=== PATIENT | female | born 1950 | race Native Hawaiian/Other Pacific Islander ===

== ENCOUNTER 2021-02-01 23:34 | Emergency (ER) | payer OTHER ==
[~2021-02-01] VITALS: Ht 147.3 cm; Wt 56.7 kg
[2021-02-01 23:34] VITALS: BP 178/81; TEMP 98
[2021-02-02 00:40] LABS: PLATELET COUNT 310 K/uL (152-353)
[2021-02-02 01:03] LABS: POTASSIUM 3.5 mmol/L (3.6-5.2)
[2021-02-02] MEDS ORDERED: ALPR0.5T24 PO (03:42)
[2021-02-02] MEDS ORDERED: STOOL SOFTNR100 MG PO (03:46)
[2021-02-02] MEDS ORDERED: HALO5INJ3 IM (03:50)
[2021-02-02] MEDS ORDERED: METF500T PO (03:57)
[2021-02-02] MEDS ORDERED: METO-837 PO (04:00)
[2021-02-02] MEDS ORDERED: PROTONIX20 MG PO (04:02)
[2021-02-19] MEDS ORDERED: RISP0.25 PO ×2 (09:03)
[2021-02-19] MEDS ORDERED: CYAN10009 IM (09:03)
[2021-02-19] MEDS ORDERED: ESCI10TA PO (09:04)
[2021-02-19] MEDS ORDERED: NICOTINE T14 MG/241 TD (09:04)
[2021-02-19] MEDS ORDERED: FOLI1TAB26 PO (09:04)
[2021-02-19] MEDS ORDERED: MEMA10TA2 PO (09:04)
[2021-02-19] MEDS ORDERED: MEMA5TAB PO (09:04)
[2021-02-19] MEDS ORDERED: DONE5TAB PO (09:05)
[2021-02-19] MEDS ORDERED: CHOL100034 PO (09:05)
== END 2021-02-02 02:20 ==
LOC: ED 23:34
PROVIDERS: Emergency Medicine Emergency Medical Services
DX: R46.89 Other symptoms and signs involving appearance and behavior (principal); Z11.59 Encounter for screening for other viral diseases; Z04.6 Encounter for general psychiatric examination, requested by authority; I10 Essential (primary) hypertension
CPT/HCPCS: 36415; 80053; 81000; 85027; 87635; 93005; 99283; U0003

== ENCOUNTER 2021-06-04 20:44 | Emergency (ER) | payer OTHER ==
[~2021-06-04] VITALS: Ht 147.3 cm; Wt 65.3 kg
[~2021-06-04 20:44] MED LIST: ALPR0.5T24 PO; CHOL100034 PO; CYAN10009 IM; DONE5TAB PO; ESCI10TA PO; FOLI1TAB26 PO; HALO5INJ3 IM; MEMA10TA2 PO; MEMA5TAB PO; METF500T PO; METO-837 PO; NICOTINE T14 MG/241 TD; PROTONIX20 MG PO; RISP0.25 PO; STOOL SOFTNR100 MG PO
[2021-06-04 21:27] LABS: PLATELET COUNT 272 K/uL (152-353)
[2021-06-04 21:41] LABS: POTASSIUM 5.6 mmol/L (3.6-5.2)
[2021-06-04 22:41] VITALS: BP 130/80; TEMP 98.1
[2021-06-04] MEDS ORDERED: LIPITOR40 MG PO (23:41)
[2021-06-04] MEDS ORDERED: DIPHENHYDRAM25 MG PO (23:42)
[2021-06-04] MEDS ORDERED: LISI5TAB10 PO (23:43)
[2021-06-04] MEDS ORDERED: HALO5TAB10 PO (23:43)
[2021-06-04] MEDS ORDERED: NAMENDA10 MG PO (23:44)
[2021-06-05] MEDS ORDERED: CAL-CITRATE PO (02:36)
[2021-06-05] MEDS ORDERED: RISP1TAB PO (02:37)
[2021-06-05] MEDS ORDERED: RISP0.5T2 PO (02:37)
[2021-06-05] MEDS ORDERED: VITAMIN D2000 UNI2 PO (02:38)
[2021-06-05] MEDS ORDERED: TRAZ50TA36 PO (02:38)
[2021-06-05] MEDS ORDERED: VITAMIN D-31000 UNIT PO (02:40)
[2021-06-05] MEDS ORDERED: B12 IM (02:45)
== END 2021-06-04 22:41 | disposition other institution (70) ==
LOC: ED 20:44
PROVIDERS: Family Medicine
DX: Z04.6 Encounter for general psychiatric examination, requested by authority (principal); F91.8 Other conduct disorders; I10 Essential (primary) hypertension
CPT/HCPCS: 36415; 80053; 85027; 87635; 93005; 99283; U0003